=== PATIENT | female | born 1940 | race Caucasian/White ===

== ENCOUNTER → 2023-10-04 08:21 | Outpatient (REF) | payer MEDICARE, OTHER, SELFPAY ==
[2023-10-04 10:44] LABS: Hematocrit 36.3 % (37.0-47.0); Hemoglobin 11.1 g/dL (12.0-16.0); Mean Corp Hgb Conc. 30.6 g/dL (33.0-37.0); Mean Corpuscular Hgb 24.9 pg (27.0-31.0); Mean Corpuscular Volume 81.6 fL (81.0-99.0); Mean Platelet Volume 11.5 fL (7.4-10.4); Platelet Count 246 10^3/uL (130-400); Red Blood Cell Count 4.45 10^6/uL (4.20-5.40); Red Cell Dist. Width 17.9 % (11.5-14.5); White Blood Cell Count 5.1 10^3/uL (4.8-10.8)
[2023-10-04 11:00] LABS: Blood Urea Nitrogen 20 mg/dl (7-17); Calcium 9.3 mg/dl (8.4-10.2); Carbon Dioxide 26 mmol/L (22-30); Chloride 105 mmol/L (98-107); Glucose 111 mg/dl (70-99); Potassium 4.7 mmol/L (3.5-5.1); Sodium 139 mmol/L (135-145); eGFR > 60.00
== END ==
LOC: SDSPAT 08:21
PROVIDERS: ATTENDING PHYSICIAN Obstetrics & Gynecology; FAMILY PHYSICIAN Family Medicine
DX: Z01.818 Encounter for other preprocedural examination (principal)
CPT/HCPCS: 36415; 80048; 85027; 86850; 86900; 86901; 93005

== ENCOUNTER 2023-10-16 06:26 | Day surgery (SDC) | payer MEDICARE, OTHER, SELFPAY ==
[2023-10-04 13:29] VITALS: BMI 34.0
--- NOTE | 2023-10-05 11:27 | CM ---
Patient is scheduled for surgery with Dr. Allen on 10/16/23. Spoke with patient prior to surgery via telephone. Introduced role of case management. Patient reports that she lives with her son and his family in a multi story home. There are no steps
to enter, then three to the next level and eight to the level where the shower is. She functions independently and does not use any DME. She has never had VN services. She has a prescription plan and uses [facility].
PCP is Dr. Mario Barcenas.
Patient states that she will have support from her son and his family when she goes home. She has no discharge planning concerns at this time.
[2023-10-16] VITALS (14 sets, daily range): BP systolic 148–208; BP diastolic 68–91; BMI 34.0
[2023-10-16] MEDS: Pyridium 200 MG PO (11:42)
[2023-10-16] MEDS: NORMOSOL-R 1000 IV ×2 (11:56→18:39)
[2023-10-16] MEDS: HEPARIN 5000 UNITS SC (12:26)
[2023-10-16] MEDS: FLAGYL 500 MG 100 IV (13:59)
[2023-10-16] MEDS: TORADOL 15 MG IV ×2 (18:36→23:28)
[2023-10-16] MEDS: LOVENOX 40 MG SC (18:52)
--- NOTE | 2023-10-16 19:30 | PTCARENOTE ---
Pt. arriving to 2S from PACU drowsy but arousable to verbal stimuli. Pt. in NAD, even and unlabored breathing on 2L NC, mcpherson in place draining orange urine, VSS, and surgical site assessed with off-going PACU nurse. Bed locked and in lowest
position, side rails in place, call light within reaching. Oriented pt's sons, at the bedside, to unit policies and procedures and questions answered. Will continue to monitor.
[2023-10-16] MEDS: TENORMIN 50 MG PO (21:12)
[2023-10-16] MEDS: COLACE 100 MG PO (21:12)
[2023-10-17] MEDS: NORMOSOL-R 1000 IV (03:02)
[2023-10-17 03:39] VITALS: BP 169/87
[2023-10-17] MEDS: TORADOL 15 MG IV ×2 (05:07→12:04)
[2023-10-17 06:29] LABS: Hematocrit 33.3 % (37.0-47.0); Hemoglobin 10.7 g/dL (12.0-16.0); Mean Corp Hgb Conc. 32.1 g/dL (33.0-37.0); Mean Corpuscular Hgb 25.2 pg (27.0-31.0); Mean Corpuscular Volume 78.5 fL (81.0-99.0); Mean Platelet Volume 10.6 fL (7.4-10.4); Platelet Count 215 10^3/uL (130-400); Red Blood Cell Count 4.24 10^6/uL (4.20-5.40); Red Cell Dist. Width 17.6 % (11.5-14.5)
[2023-10-17 07:03] VITALS: BP 175/79
[2023-10-17 07:22] LABS: Blood Urea Nitrogen 12 mg/dl (7-17); Carbon Dioxide 24 mmol/L (22-30); Chloride 108 mmol/L (98-107); Estimated Creatinine Clearance 67 ml/min; Sodium 136 mmol/L (135-145)
--- NOTE | 2023-10-17 07:49 | W.PN.GYN ---
Today's Communication / Plan
-
1. voiding trial
2. d/c home
Physician Note
-
Assessment and Plan:
83 yo woman POD 1 s/p robotic TLH, BSO, sacrocolpopexy, posterior colporrhaphy with perineoplasty, cystoscopy: doing well and meeting postoperative milestones.
1. Postoperative care
-hep lock iv
-regular diet
-dvt ppx: lovneox, scds, ambulation
-cbc: WNL
-bmp: WNL
-uop: adequate
2. dispo
-d/c home today after voiding trial
Subjective:
no acute complaints. pain well controlled, ambulating in room, mcpherson removed. denies fevers, chills, nausea, vomiting, chest pain, sob, leg pain
Objective:
Intake and Output
10/15/23 10/16/23 10/17/23 10/18/23
06:59 06:59 06:59 06:59
Intake Total 540 / 540
Output Total 1575 / 1575
Balance -1035 / -1035
Intake:
Oral fluids 240 / 240
IV fluids (Total) 300 / 300
Normosal 300 / 300
Output:
Urine, Mcpherson 1575 / 1575
Vital Signs
Temp Pulse Resp BP Pulse Ox
97.5 F 69 16 169/87 97
10/17/23 03:39 10/17/23 03:39 10/17/23 03:39 10/17/23 03:39 10/17/23 03:39
Lab Results
10/17/23 05:41
10/17/23 05:41
Exam:
Incisions: clean, dry, intact
: minimal spotting
Abdomen: soft, nontender, nondistended
[2023-10-17] MEDS: NORVASC 2.5 MG PO (08:26)
[2023-10-17] MEDS: COLACE 100 MG PO (08:26)
[2023-10-17] MEDS: TENORMIN 50 MG PO (08:26)
--- NOTE | 2023-10-17 09:01 | CM ---
Reviewed chart and discussed with RN. Patient is s/p robotic supracervical hysterectomy, BSC, sacrocolpopexy, posterior repair, sling and cystoscopy. Inman d/c'd this am; voiding trial in progress. Met with patient at bedside. Confirmed information
previously obtained for assessment and discussed discharge plans. Patient continues to plan to return home at discharge. She will have support from her son and his family when she goes home. She continues to have no concerns about discharge plans.
No discharge planning needs identified.
--- NOTE | 2023-10-17 12:52 | PTCARENOTE ---
Patient was having difficulty voiding post catheter removal.Initial bladder scan showed 313ml. with patient feeling like she had to urinate continuously but was only dribbling urine.I was just about to replace the catheter for discharge and she was
able to void a large amount.I was unable to measure as she missed the hat but patient stated that it was the first time she felt relief.I bladder scanned her again and this time only scanned 131ml.Patient will wait a little longer to make sure she
is voiding ok and if she feels comfortable then I will discharge her.
== END 2023-10-17 14:35 | disposition home or self-care (01) ==
LOC: SDS 06:26
PROVIDERS: ATTENDING PHYSICIAN Obstetrics & Gynecology; FAMILY PHYSICIAN Family Medicine
DX: N81.3 Complete uterovaginal prolapse (principal); N39.3 Stress incontinence (female) (male); N95.0 Postmenopausal bleeding; N95.2 Postmenopausal atrophic vaginitis; N84.0 Polyp of corpus uteri; N80.03 Adenomyosis of the uterus; D25.9 Leiomyoma of uterus, unspecified
CPT/HCPCS: 57425; 58571; 57250; 88305; 80051; 82565; 84520; 85027; 86900; 86901; C1763